=== PATIENT | female | born 1945 | race Caucasian/White ===

== ENCOUNTER 2018-07-11 08:47 | Day surgery (SDC) | payer MEDICARE, SELFPAY ==
--- NOTE | 2018-07-10 15:35 | POEE_ITS ---
History of Present Illness Chief Complaint: Progressive decreased vision, left eye Narrative: The patient is a 73-year old female who has previously undergone cataract surgery in the right eye in 2012. She has a best corrected visual acuity of 20/20 in the right eye. She notes progressive decreased vision in her left eye, particularly difficulty with glare when driving. She also notes decreased vision while reading. On examination she was noted to have nuclear and cortical cataract of the left eye. The option of cataract surgery was offered to the patient and she felt she was symptomatic enough that she desired to proceed. NOTE: The Chief Complaint, HPI, Past Medical History, Past Surgical History, Family History, Social History, Medications, and complete Ophthalmic Exam with detailed Assessment and Plan have already been documented in the patient's outpatient ophthalmic record and are not covered again in detail here. PFSH Cortical cataract of left eye (Acute) Status post cataract extraction and insertion of intraocular lens of right eye ( Chronic 06/26/13) Medical History Cortical cataract of left eye (Acute) Social History Smoking/Tobacco Use Status: Former Tobacco Use Surgical History Status post cataract extraction and insertion of intraocular lens of right eye ( Chronic 06/26/13) Social History Smoking/Tobacco Use Status: Former Tobacco Use Meds Home Medications Medication Instructions Recorded Confirmed Type alendronate [Fosamax] 70 mg PO QWEEK 07/06/18 07/06/18 History aspirin [Aspir-81] 81 mg PO DAILY 07/06/18 07/06/18 History atorvastatin 1 tab PO DAILY 07/06/18 07/06/18 History carvedilol 12.5 mg PO BID 07/06/18 07/06/18 History cetirizine 10 mg PO DAILY 07/06/18 07/06/18 History cholecalciferol (vitamin D3) 1,000 unit PO DAILY 07/06/18 07/06/18 History [Vitamin D3] coenzyme Q10 [CoQ-10] 100 mg PO DAILY 07/06/18 07/06/18 History furosemide [Lasix] 20 mg PO DAILY 07/06/18 07/06/18 History levothyroxine [Synthroid] 50 mcg PO DAILY 07/06/18 07/06/18 History lisinopril 5 mg PO DAILY 07/06/18 07/06/18 History lutein 20 mg PO DAILY 07/06/18 07/06/18 History meclizine 25 mg PO TID 07/06/18 07/06/18 History multivitamin 1 tab PO DAILY 07/06/18 07/06/18 History omega 8-lkr-cyh-fish oil [Fish Oil] 1 cap PO DAILY 07/06/18 07/06/18 History spironolactone [Aldactone] 12.5 mg PO DAILY 07/06/18 07/06/18 History vitamin E 400 unit PO DAILY 07/06/18 07/06/18 History Allergies Allergy/AdvReac Type Severity Reaction Status Date / Time Penicillins Allergy Unknown Verified 07/06/18 13:47 Exam OCULAR EXAM:: Most recent ocular examination revealed corrected visual acuity of 20/20 right eye, 20/30 left eye. Pupils equal, round, and reactive without afferent pupillary defect, intraocular pressure is 13 in each eye. Extraocular motility is normal. Slit-lamp examination reveals pupils dilating to 7 mm OU. Well-positioned PCIOL OD with clear posterior capsule. 1-2+ nuclear with trace cortical cataract OS. Disc cupping is 0.3 OU with good color. The optic nerves have good perfusion and normal color. The retinal vasculature is normal without significant tortuosity or abnormality. The maculas are normal in appearance with normal contour and foveal reflex appropriate for age. The peripheral retina and vitreous are normal. BRIGHTNESS ACUITY TESTING (BAT):: Brightness acuity testing of the left eye is 20/25,, low is 20/20, medium is 20/25, high is 20/25 Assessment and Plan (1) Nuclear sclerotic cataract of left eye: Current visit: No Status: Acute Assessment: Visually significant cataract, left eye. Plan: Cataract extraction with intraocular lens implantation, left eye (2) Cortical cataract of left eye: Current visit: No Status: Acute Assessment: Visually significant cataract, left eye. Plan: Cataract extraction with intraocular lens implantation, left eye Note: NOTE:: The details of the planned surgery, including the risks, indications, limitations,expectations,outcome and possible complications were explained to the patient. The patient understands the complications including, but not limited to: infection, hemorrhage, posterior dislocation of the lens or nuclear fragments which may require the intervention of a vitreoretinal surgeon, possible loss of the eye, or from anesthetic complications. The patient has been made aware of the option of not having surgery, that vision following surgery may not be equal to that prior to surgery, and that the planned surgery may not achieve the intended results. Following this discussion, which the patient appeared to understand, the patient wishes to proceed with cataract surgery with lens implantation of the affected eye to improve and maximize vision.
[2018-07-11 09:21] VITALS: BP 119/79; PULSE 90; RESP 18; TEMP 36.3; O2SAT 98
[2018-07-11] MEDS: Tropicam./Phenyleph. (1/2.5%) 5 ML BTL OS ×3 (09:38→09:45)
[2018-07-11] MEDS: Tetracaine 0.5% 4 ML BTL OS ×4 (09:38→10:42)
[2018-07-11] MEDS: Lidocaine 2% Jelly 6 ML SYR (10:42)
[2018-07-11] MEDS: Balanced Salt Soln.-PLUS 500 ML BAG (10:46)
[2018-07-11] MEDS: Lidocaine 1% Pres-Free 5 ML VIAL (10:48)
[2018-07-11] MEDS: Povidone-Iodine Ophth 30 ML BTL (11:05)
--- NOTE | 2018-07-11 11:15 | W.PM.DSUDISC ---
Discharge Plan Discharge Details Attending Provider: Izaiah Morgan Primary Care Provider: Shabbir Zazueta Home Meds and New Rx's Prescriptions: No Action multivitamin Tablet 1 tab PO DAILY RF: 0 atorvastatin 40 mg Tablet 1 tab PO DAILY RF: 0 carvedilol 12.5 mg Tablet 12.5 mg PO BID RF: 0 cetirizine 10 mg Tablet 10 mg PO DAILY RF: 0 alendronate [Fosamax] 70 mg Tablet 70 mg PO QWEEK RF: 0 aspirin [Aspir-81] 81 mg Tablet,Delayed Release (Dr/Ec) 81 mg PO DAILY RF: 0 spironolactone [Aldactone] 25 mg Tablet 12.5 mg PO DAILY RF: 0 levothyroxine [Synthroid] 50 mcg Tablet 50 mcg PO DAILY RF: 0 lisinopril 5 mg Tablet 5 mg PO DAILY RF: 0 furosemide [Lasix] 20 mg Tablet 20 mg PO DAILY RF: 0 vitamin E 400 unit Capsule 400 unit PO DAILY RF: 0 cholecalciferol (vitamin D3) [Vitamin D3] 1,000 unit Capsule 1,000 unit PO DAILY RF: 0 coenzyme Q10 [CoQ-10] 100 mg Capsule 100 mg PO DAILY RF: 0 lutein 20 mg Capsule 20 mg PO DAILY RF: 0 omega 1-whx-xgy-fish oil [Fish Oil] 60-90-500 mg Capsule 1 cap PO DAILY RF: 0 Discharge Instructions Stand Alone Forms: Post-op Topical CataractChetna (DSU) DS: Diagnosis Discharge Diagnosis (1) Nuclear sclerotic cataract of left eye: Status: Resolved (2) Cortical cataract of left eye: Status: Resolved
--- NOTE | 2018-07-11 11:17 | ROE_ITS ---
Date of service: 07/11/18 Time of Service: 11:16 Operative Note PRE-OP DIAGNOSIS: Cataract, left eye POST-OP DIAGNOSIS: same PROCEDURE: Cataract extraction using phacoemulsification with intraocular lens implant, left eye SURGEON: Izaiah Morgan ANESTHESIA: MAC and local (sub-tenon's anesthetic infiltration) PATHOLOGY: none sent COMPLICATIONS: None Patient was transported to: same day Patient's condition: stable Implants: S[employer] / [employer] Tecnis ZCB00 Indications: Progressive decreased vision due to cataract, left eye Procedure Description: CATARACT SURGERY OPERATIVE REPORT PREOPERATIVE DIAGNOSIS: Nuclear/cortical cataract, left eye POSTOPERATIVE DIAGNOSIS: Same OPERATION: Cataract extraction using phacoemulsification with posterior chamber intraocular lens implant, left eye. IOL: IOL [employer] Adviser/Model: [employer] / NONA Tecnis ZCB00 IOL Power: + 22.50 diopters IOL Serial Number: [id number] Optic Diameter: 6.0mm Haptic/Overall Diameter: 13.0mm PHACO INFO: [employer] Vision System with OZil and [employer] Cumulative Dispersed Energy (CDE): 7.51 seconds SURGEON: Izaiah Morgan MD, CORAL ANESTHESIA: Monitored Anesthesia Care (MAC), with local sub-tenon's anesthetic infiltration COMPLICATIONS: None SPECIMENS: None INDICATIONS FOR PROCEDURE: The patient is a 73-year old female who has previously undergone cataract surgery in the right eye in 2012. She has now developed a symptomatic nuclear and cortical cataract in the left eye. She desires cataract surgery and attempt to improve and maximize her vision. PROCEDURE: The correct surgical eye was identified and marked as the left eye and the pupil was dilated in the preoperative area using mydriatics and cycloplegics. The dilated pupil size was 6.5 mm. Oral sedation was administered in the form of an Imprimis MKO Melt (midazolam 3mg/ketamine 25mg/ ondansetron 2mg). The patient was brought to the operating room where cardiopulmonary monitoring was instituted and surgical time-out was performed, confirming the correct operative eye and IOL power. Topical anesthesia was administered and ophthalmic povidone-iodine 5% was instilled into the conjunctival fornices. Lidocaine gel was applied to the cornea and the etienne-ocular area was prepped with Betadine 10% solution and draped in the usual sterile fashion for intraocular surgery, including an aperture drape. A Tegaderm transparent film dressing was cut in half and used to cover the lashes and lid margins. Care was taken to sequester the lashes and lid margins under the Tegaderm dressing. A lid speculum was placed between the lids of the operative eye and the Vinh-Juvencio operating microscope was maneuvered into position. Lauro scissors were then used to make a conjunctival buttonhole approximately 6mm posterior to the limbus in the inferonasal quadrant. Blunt dissection was carried out to expose bare sclera, and a blunt-tipped sub-tenon? s anesthesia cannula was introduced and passed posteriorly along the globe where non-preserved plain lidocaine was injected into posterior sub-Tenon?s space. A sideport knife was used to make a paracentesis port superior/ superiortemporal, and the anterior chamber was filled with Healon GV. A 2.4mm keratome knife was used to create a half-thickness groove at the limbus and then to construct a three-plane near-clear corneal tunnel extending 2.0mm into clear cornea in the temporal position. . A flap was raised on the anterior capsule and capsulorhexis forceps were used to complete a continuous curvilinear capsulorhexis of 4.5 mm. Balanced salt solution was then used to perform cortical cleaving hydrodissection and nuclear hydrodelineation until the lens could be freely rotated within the capsular bag. The lens nucleus was then disassembled and removed within the capsular bag and iris plane using phacoemulsification. Residual cortical material was removed using the 45-degree angled silicone I/A tip with 0.3mm port. The posterior capsule was carefully polished to remove as much residual lens epithelial cells as safely possible. The capsular bag was then inflated and the anterior chamber deepened with viscoelastic. The lens implant described above was inserted into the capsular bag using the NONA [place] Injector. A Kuglen hook was used to dial the IOL into position. Residual viscoelastic was then removed first from posterior to the IOL, then from the anterior chamber using the I/A handpiece. The lens implant was noted to center nicely within the capsular bag. The incisions were stromally hydrated , and the anterior chamber was reformed using BSS. Then 0.4cc of moxifloxacin 1.5mg/ml were injected into the capsular bag and anterior chamber. The incisions were checked with a Weck spear and found to be secure. Several drops of ophthalmic povidone-iodine 5% were then applied to the eye followed by two drops of Imprimis combination moxifloxacin/dexamethasone solution. The drapes were removed and a clear plastic protective eye shield was placed over the eye. The patient was then returned to [facility] in stable condition.
[2018-07-11 11:25] VITALS: BP 98/72; PULSE 84; RESP 18; TEMP 36.7; O2SAT 96
== END 2018-07-11 11:45 | disposition home or self-care (01) ==
LOC: SUR 08:48
PROVIDERS: PCP Family Medicine; Visit Provider Ophthalmology
PROC: (CPT 66984; principal; 2018-07-11 11:15)
DX: H25.812 Combined forms of age-related cataract, left eye (principal)
CPT/HCPCS: 66984; V2632